=== PATIENT | female | born 1995 | race Caucasian/White ===

== ENCOUNTER 2018-12-03 16:15 | Emergency (ER) | payer MEDICAID ==
[2018-12-03] MEDS ORDERED: 0.9 % SODIUM CHLORIDE 1,000 ML BAG IV ONE (16:33)
--- NOTE | 2018-12-03 17:02 | Emergency Department Record ---
History of Present Illness - General Chief Complaint: Tremor Stated Complaint: THYROID REACTION- SHAKEY/DIZZY Time Seen by Provider: 12/03/18 16:31 Source: Patient Mode of Arrival: Ambulatory Limitations: No limitations - History of Present Illness Initial comments: The patient is here due to feeling shakey and dizzy with tremors for the last day. She has a hx of similar issues due to Hyperthyroid problems and was last hospitalized in 2016 for it. She has been out of her medicines for many months. She denies any CP, SOB, ROMA, or BILL. Onset/Timin -: Days(s) - Stuart Coma Scale Eye Response: (4) Open spontaneously Motor Response: (6) Obeys commands Verbal Response: (5) Oriented Stuart Total: 15 - Related Data Home Medications Medication Instructions Recorded Confirmed Last Taken Loratadine [Claritin] 10 mg PO DAILY 12/03/18 12/03/18 12/03/18 Previous Rx's Medication Instructions Recorded Amoxicillin 500Mg Capsule [Amoxil] 500 mg PO TID #30 tab 11/25/18 Allergies Allergy/AdvReac Type Severity Reaction Status Date / Time No Known Drug Allergies Allergy Verified 11/25/18 15:38 Travel Screening - Travel/Exposure Within Last 30 Days Have you traveled within the last 30 days?: No - Travel/Exposure Within Last Year Have you traveled outside the [place] in the last year?: No - Additonal Travel Details Have you been exposed to anyone with a communicable illness?: No - Travel Symptoms Symptom Screening: None Review of Systems Constitutional: Denies: Chills, Fever Eyes: Denies: Eye discharge ENT: Denies: Congestion Respiratory: Denies: Cough Cardiovascular: Denies: Arrhythmia Endocrine: Denies: Fatigue Past Medical History - SOCIAL HISTORY Smoking Status: Current every day smoker Alcohol Use: Rare Drug Use: Heavy Drug Use Detail:: Marijuana - RESPIRATORY Hx Respiratory Disorders: No - CARDIOVASCULAR Hx Cardio Disorders: No - NEURO Hx Neuro Disorders: No - GI Hx GI Disorders: No - Hx Genitourinary Disorders: No - ENDOCRINE Hx Endocrine Disorders: Yes Hx Thyroid Disease: Yes - MUSCULOSKELETAL Hx Musculoskeletal Disorders: No - PSYCH Hx Psych Problems: No - HEMATOLOGY/ONCOLOGY Hx Hematology/Oncology Disorders: No Family Medical History Any Significant Family History?: No Physical Exam - General General Appearance: Alert, Oriented x3, Cooperative, No acute distress - Head Head exam: Atraumatic, Normocephalic, Normal inspection - Eye Eye exam: PERRL. negative: Normal appearance (the patient has mild proptosis.) - ENT Throat exam: Normal inspection. negative: Tonsillar erythema, Tonsillar exudate - Neck Neck exam: Normal inspection, Full ROM. negative: Tenderness - Respiratory Respiratory exam: Normal lung sounds bilaterally. negative: Respiratory distress - Cardiovascular Cardiovascular Exam: Regular rate, Normal rhythm, Normal heart sounds, Tachycardia - GI/Abdominal GI/Abdominal exam: Soft, Normal bowel sounds. negative: Tenderness - Extremities Extremities exam: Normal inspection, Full ROM, Normal capillary refill. negative: Tenderness - Back Back exam: Reports: Normal inspection - Neurological Neurological exam: Alert, Normal gait. negative: Abnormal gait, Altered, Motor sensory deficit - Psychiatric Psychiatric exam: negative: Anxious - Skin Skin exam: negative: Rash Course Vital Signs 12/03/18 16:23 Temperature 97.9 F Pulse Rate 122 H Blood Pressure 160/69 - Reevaluation(s) Reevaluation #1: The patient is doing a lot better at this time. Her HR is down to 110-115 with the Ativan. She is feeling much better. I did discuss the need for admission and she would like to go to [facility] [place]. I then did discuss the case with Dr. [place] and he did accept the patient for admission and transfer. 12/03/18 18:09 Reevaluation #2: The patient continues to feel well at this time. She is no longer shakey and has no tremors. Her HR is down to 110 presently. 12/03/18 18:40 Medical Decision Making - Data Complexity MDM Data: Labs Ordered and/or Reviewed, EKG Ordered and/or Reviewed - Lab Data Result diagrams: 12/03/18 17:00 12/03/18 17:00 - EKG Data -: EKG Interpreted by Me (Sinus Tach at 120.) Disposition Disposition: Transfer Clinical Impression: Hyperthyroidism Disposition: Acute Care Hospital Transfer Transfer To: [facility] [place] Reason For Transfer: Endocrinology. Accepting Physician: Edilma Time Discussed w/Accepting Physician: 18:10 Condition: (2) Stable Instructions: Hyperthyroidism (ED) Forms: Patient Portal Access Time of Disposition: 18:10 Quality - Quality Measures Quality Measures: N/A - Blood Pressure Screening View Details: Yes Does Patient Have Any of the Following: No Blood Pressure Classification: Hypertensive Reading Systolic Measurement: 160 Diastolic Measurement: 69 Screening for High Blood Pressure: < First Hypertensive BP, F/U Documented > [[id number]] First Hypertensive Follow-up Interventions: Referral to alternative/primary care provider.
[2018-12-03 17:06] LABS: ABSOLUTE NEUTROPHIL COUNT 2.45; GRAN % 54.3 % (47-80); HEMATOCRIT 33.8 % (35.0-47.0); HEMOGLOBIN 11.3 gm/dl (11.6-16.0); LYMPH % 34.4 % (16-45); MEAN CELL VOLUME 82.6 fl (81-97); MEAN CORPUSCULAR HEMOGLOBIN 27.6 pg (27-33); MEAN CORPUSCULAR HGB CONC 33.4 g/dl (32-36); MEAN PLATELET VOLUME 10.1 fl (7.4-10.4); MONO % 11.3 % (0-9); PLATELET COUNT 169 K/uL (130-400); RED BLOOD COUNT 4.09 M/uL (3.80-5.40); RED CELL DISTRIBUTION WIDTH 13.8 % (11.5-14.5); WHITE BLOOD COUNT W/O DIFF 4.5 K/uL (4.2-12.2)
[2018-12-03] MEDS ORDERED: LORAZEPAM 2 MG/ML VIAL IV ONE (17:14)
[2018-12-03 17:16] LABS: BLOOD UREA NITROGEN 7 mg/dL (6-20); CREATININE 0.2 mg/dL (0.5-0.9); EST GLOMERULAR FILTRATION RATE > 60 mL/min
[2018-12-03 17:17] LABS: TOTAL PROTEIN 7.6 g/dL (6.6-8.7)
[2018-12-03 17:19] LABS: GLUCOSE,RANDOM 118 mg/dL (74-109)
[2018-12-03 17:21] LABS: ALT/SGPT 18 U/L (<33)
[2018-12-03 17:22] LABS: ALBUMIN 3.9 g/dL (4.0-5.0); ALKALINE PHOSPHATASE 207 U/L (35-104); AST/SGOT 23 U/L (10.0-35.0)
[2018-12-03 17:29] LABS: BILIRUBIN,DIRECT < 0.2 mg/dL (0-0.3)
[2018-12-03 17:32] LABS: THYROID STIMULATING HORMONE < 0.01 uIU/mL (0.270-4.20)
[2018-12-03 17:35] LABS: THYROXINE (T4) 24.04 ug/dL (4.5-11.7)
[2018-12-03] MEDS ORDERED: [UNRECOGNIZED DRUG - OTHER] IV ONE (17:49)
[2018-12-03] MEDS ORDERED: PROPRANOLOL IV ONE (17:49)
== END 2018-12-03 18:51 | disposition short-term general hospital (02) ==
LOC: ER 16:15
DX: E05.90 Thyrotoxicosis, unspecified without thyrotoxic crisis or storm (principal); R00.0 Tachycardia, unspecified; R42 Dizziness and giddiness; R25.1 Tremor, unspecified; F17.210 Nicotine dependence, cigarettes, uncomplicated
CPT/HCPCS: 99285 ×2; 96374; 96375; 85025; 80076; 80048; 84443; 84436; 84703; 93005; 93010; J2060; J1800; J7030